=== PATIENT | female | born 1940 | race Two or more races ===

== ENCOUNTER 2019-08-03 23:09 | Inpatient (IN) | payer MEDICARE, MEDICAID ==
[~2019-08-03] VITALS: Ht 152.4 cm; Wt 64.9 kg
[~2019-08-03 23:09] MED LIST: AMLO2.5T4 PO; AZIT500T PO; CITA20TA16 PO; DIVA125C5 PO; DONE10TA44 PO; LEVO50TA8 PO; MEMA28CA5 PO; OLME20TA23 PO; OMEP40CA13 PO; QUET25TA PO; RANI300T4 PO; SIMV10TA98 PO
--- NOTE | 2019-08-03 23:26 | NUR ---
PT JYOTSNA. HAS SYNCOPAL EPISODE. INITIALLY STEPHANIE IN BY SON FOR C/O DYSURIA SINCE 0. PLACED ON MONITOR AND PULSE OX. PLACED ON SIMPLE MASK 11L, FLUIDS INITIATED (LAC 16G), LABS COLLECTED, PT AWAKE AND RESPONSIVE. SON AT BEDSIDE.
--- NOTE | 2019-08-03 23:40 | NUR ---
Labs collected and sent to lab. Awaiting urine sample.
[2019-08-03 23:46] LABS: BASOPHILS # (AUTO) 0.1 /CMM (0.0-0.2); BASOPHILS % (AUTO) 0.9 % (0.0-2.0); EOSINOPHILS % (AUTO) 0.7 % (0.0-6.0); HEMATOCRIT 41 % (33-45); HEMOGLOBIN 13.6 g/dL (11.5-14.8); LYMPHOCYTES # (AUTO) 4.3 /CMM (0.8-4.8); LYMPHOCYTES % (AUTO) 37.1 % (20.0-44.0); MEAN CORPUSCULAR HGB CONC 33 g/dl (31.0-36.0); MEAN CORPUSCULAR VOLUME 91 fL (82-100); MONOCYTES # (AUTO) 1.1 /CMM (0.1-1.30); MONOCYTES % (AUTO) 9.6 % (2.0-12.0); NEUTROPHILS # (AUTO) 5.9 /CMM (1.8-8.9); NEUTROPHILS % (AUTO) 51.7 % (43.0-81.0); PLATELET COUNT (AUTO) 245 /CMM (150-450); RED BLOOD CELL COUNT(AUTO) 4.49 MIL/uL (4.0-5.2); WHITE BLOOD COUNT (AUTO) 11.5 K/uL (4.3-11.0)
[2019-08-03 23:56] LABS: CALCIUM, SERUM 8.8 mg/dL (8.5-10.1); CARBON DIOXIDE 27 mmol/L (21-32); CHLORIDE 105 mmol/L (98-107); GLUCOSE 151 mg/dL (74-106); POTASSIUM 4.2 mmol/L (3.5-5.1); SODIUM SERUM 142 mmol/L (136-145); UREA NITROGEN, BLOOD 13 mg/dL (7-18)
[2019-08-04] MEDS ORDERED: IV NS 0.9% 1,000 ML BAG IV ONE
[2019-08-04 00:02] LABS: ALANINE AMINOTRANSFERASE 20 U/L (12-78); ALBUMIN 3.3 g/dL (3.4-5.0); ALKALINE PHOSPHATASE 80 U/L (46-116); ASPARTATE AMINOTRANSFERASE 24 U/L (15-37); BILIRUBIN,DIRECT 0.1 mg/dL (0.0-0.2); BILIRUBIN,TOTAL 0.4 mg/dL (0.2-1.0); TOTAL PROTEIN, SERUM 7.3 g/dL (6.4-8.2)
--- NOTE | 2019-08-04 00:04 | NUR ---
CALLED SUP FOR TELE BED
--- NOTE | 2019-08-04 00:05 | NUR ---
URINE COLLECTED AND SENT TO LAB
--- NOTE | 2019-08-04 00:05 | NUR ---
BROUGHT TO CT
--- NOTE | 2019-08-04 00:58 | NUR ---
PER SON, UNABLE TO RECALL MEDS. WILL BRING LIST OF MEDS TOMORROW.
[2019-08-04 01:03] LABS: APPEARANCE,URINE Cloudy (CLEAR); BILIRUBIN,URINE LARGE (NEGATIVE); BLOOD, URINE Large Ery/uL (NEGATIVE); COLOR,URINE Red (YELLOW); KETONES,URINE 15 (NEGATIVE); LEUKOCYTE ESTERASE ,URINE Large (NEGATIVE); NITRITE, URINE Positive (NEGATIVE); PH,URINE 6.5 (5.0-8.0); PROTEIN,URINE >=300 mg/dl (NEGATIVE); UGLUCOSE 100 MG/DL mg/dL (NEGATIVE)
--- NOTE | 2019-08-04 01:04 | NUR ---
REPORT GIVEN TO MARIELA FOR GABBY
[2019-08-04] MEDS ORDERED: CEFTRIAXONE 1GM BAG (ER ONLY) 50 ML IV ONE (01:09)
[2019-08-04 01:11] LABS: BACTERIA,URINE Moderate /HPF (None Seen); RBC,URINE TOO NUMEROUS TO COUN /HPF (0-2); SQUAMOUS EPITHELIAL CELL,UR Few /HPF (None Seen)
--- NOTE | 2019-08-04 01:17 | NUR ---
VSS. Transfering pt.
[2019-08-04] MEDS ORDERED: CEFTRIAXONE 1GM BAG (ER ONLY) 1 GM/50 ML PIGGYBACK IV ONE (01:30)
[2019-08-04] MEDS ORDERED: IV NS 0.9% 1,000 ML IV PRN (01:33)
--- NOTE | 2019-08-04 01:37 | NUR ---
DETECTIVE LIEUTENANT NOTES REPORT RECEIVED FROM SHELDON PHAN FROM ER; AWAITING PATIENT ARRIVAL
[2019-08-04 02:00] VITALS: BP 140/54
[2019-08-04] MEDS ORDERED: MAGNESIUM HYDROXIDE 30 ML UDC PO PRN (02:00)
[2019-08-04] MEDS ORDERED: HYDROCODONE/APAP 5/325MG 1 EACH TABLET PO PRN (02:00)
[2019-08-04] MEDS ORDERED: ACETAMINOPHEN 325 MG TABLET PO PRN (02:00)
[2019-08-04] MEDS ORDERED: ONDANSETRON HCL/PF 4 MG/2 ML VIAL IVP PRN (02:00)
[2019-08-04] MEDS ORDERED: Z GUARD REMEDY 2 OZ OINT TP PRN (02:00)
[2019-08-04] MEDS ORDERED: MAG HYDROX/AL HYDROX/SIMETH 30 ML UDC PO PRN (02:00)
[2019-08-04] MEDS ORDERED: ZOLPIDEM TARTRATE 5 MG TABLET PO PRN (02:00)
--- NOTE | 2019-08-04 02:00 | NUR ---
ASSEMBLER FAUCETS ADMITTING NOTES PATIENT ARRIVED VIA GURNEY, ACCOMPANIED BY ER STAFF AND SON; PATIENT AWAKE, A/O X 2-3; PATIENT AMBULATORY WITH ASSISTANCE; SKIN INTACT; TELE MONITOR ATTACHED AND READS NORMAL SINUS RHYTHM HR 65BPM; PATIENT ON 3L NC AND TOLERATING WELL, NO SOB NOTED; NO S/S OF ACUTE RESPIRATORY DISTRESS NOTED; VITALS WNL; PATIENT DENIES PAIN; PATIENT AND SON REQUEST FULL CODE STATUS; SAFETY PRECAUTIONS IMPLEMENTED; BED LOCKED IN LOW POSITION, PATIENT HIGH FOWLERS WITH BILATERAL UPPER SIDE RAILS X2; CALL LIGHT WITHIN EASY REACH; WILL CONTINUE TO MONITOR;
--- NOTE | 2019-08-04 02:02 | NUR ---
PT TRANSFERED PER ACLS PROTOCOL
--- NOTE | 2019-08-04 02:58 | NUR ---
rn notes: received telephone order from hospitalist tonger, for pt to be on cardiac diet. order read back, verified and carried out.
[2019-08-04 04:00] VITALS: BP 124/59
--- NOTE | 2019-08-04 04:53 | NUR ---
MARINE RESOURCE ECONOMIST NOTES LACTIC ACID 2.8; INITIAL RESULTS 2.9; SPOKE WITH MD TOMAS NANCE; NOTIFIED AND AWARE; MD WOULD LIKE TO CONTINUE IVF NS @ 75ML/HR; WILL CONTINUE TO MONITOR
--- NOTE | 2019-08-04 05:23 | NUR ---
GOLF SALES ASSOCIATE NOTES PATIENT AGITATED AND REFUSING TO BE CHANGED; PATIENT WAS EDUCATED ON IMPORTANCE OF CHANGING DIAPERS PRN; PATIENT STILL REFUSED; WILL CONTINUE TO MONITOR
--- NOTE | 2019-08-04 06:32 | NUR ---
[employer]ARD[employer]OD FLOOR INSTALLER CLOSING NOTES PATIENT RESTING COMFORTABLY IN BED; A/O X2-3; NO SOB NOTED; PATIENT ON 3L NC; TOLERATING WELL, BREATHING EVEN AND UNLABORED; L AC #16 INTACT AND PATENT; RUNNING NS @ 75ML/HR; PATIENT TOLERATING IVF WELL; ALL NEEDS RENDERED; SAFETY PRECAUTIONS IMPLEMENTED; BED LOCKED IN LOW POSITION; BILATERAL UPPER SIDE RAILSX2; CALL LIGHT WITHIN REACH; WILL ENDORSE GABBY TO ONCOMING SHIFT Addendum: 08/04/19 at 0635 by KENDY ESPINAL RN TELE MONITOR READING NORMAL SINUS RHYTHM, HR: 65
--- NOTE | 2019-08-04 07:28 | NUR ---
PRINT LINE FEEDER NOTES DURING SHIFT CHANGE, PATIENT STARTED TO GET AGITATED; PATIENT IS AWAKE A/O X1 SINGAPOREAN SPEAKING AND CONFUSED; PATIENT YELLING AT STAFF; LEAVING ROOM AND WALKING AROUND UNIT ACCOMPANIED BY CYCLE SPECIALIST; CHARGE NURSE AWARE AND CALLED SON; WILL ENDORSE TO ONCOMING SHIFT
[2019-08-04 08:00] VITALS: BP 118/56
--- NOTE | 2019-08-04 08:00 | NUR ---
RN NOTES PATIENT RECEIVED IN THE ROOM,GET IRRITABLE, BECAUSE OF DEMENTIA, CONFUSED, INCREASING VOICE, CALLED SON FOR HELP, ALSO NOTIFIED TO BRING HOME MEDICATION. SAFETY PRECAUTION MAINTAINED ALL THE TIME. PATIENT REFUSED US TO BE TAKEN.
[2019-08-04] MEDS ORDERED: ASPI81TA44 PO (08:13)
[2019-08-04] MEDS ORDERED: CAND32TA20 PO (08:13)
[2019-08-04] MEDS ORDERED: DIVA125T2 PO (09:16)
[2019-08-04] MEDS ORDERED: DIVA125T32 PO (09:17)
[2019-08-04] MEDS: AMLODIPINE BESYLATE 2.5 MG TABLET PO SCH (09:30)
[2019-08-04] MEDS ORDERED: DIVALPROEX SODIUM 125 MG CAP.SPRINK PO SCH (09:30)
[2019-08-04] MEDS ORDERED: LOSARTAN POTASSIUM 50 MG TABLET PO SCH (10:00)
[2019-08-04] MEDS: IV NS 0.9% 1,000 ML IV SCH ×2 (11:04→16:43)
[2019-08-04] MEDS: ASPIRIN EC 81 MG TABLET.DR PO SCH (11:07)
[2019-08-04] MEDS: MEMANTINE HCL 5 MG TABLET PO SCH ×2 (11:07→17:37)
[2019-08-04] MEDS: LEVOTHYROXINE SODIUM 50 MCG TABLET PO SCH (11:09)
--- NOTE | 2019-08-04 13:14 | NUR ---
RN NOTES AFTER MEDICATION ADMINISTRATION, PATIENT MORE COOPERATIVE, ABLE TO INFUSE NS 200 ML/HR INTACT ON LEFT AC AREA, TOLERATED LUNCH, AND RESTING IN THE BED. TUTOR COORDINATOR NEX TO THE BED.CONTINUED MONITORING.
[2019-08-04 14:09] LABS: PHOSPHORUS 2.9 mg/dL (2.5-4.9)
[2019-08-04 16:00] VITALS: BP 131/63
[2019-08-04 16:13] LABS: BASOPHILS # (AUTO) 0.1 /CMM (0.0-0.2); BASOPHILS % (AUTO) 0.7 % (0.0-2.0); EOSINOPHILS % (AUTO) 0.5 % (0.0-6.0); HEMATOCRIT 38 % (33-45); HEMOGLOBIN 12.7 g/dL (11.5-14.8); LYMPHOCYTES # (AUTO) 2.3 /CMM (0.8-4.8); LYMPHOCYTES % (AUTO) 27.5 % (20.0-44.0); MEAN CORPUSCULAR HGB CONC 33 g/dl (31.0-36.0); MEAN CORPUSCULAR VOLUME 91 fL (82-100); MONOCYTES # (AUTO) 0.8 /CMM (0.1-1.30); MONOCYTES % (AUTO) 9.2 % (2.0-12.0); NEUTROPHILS # (AUTO) 5.2 /CMM (1.8-8.9); NEUTROPHILS % (AUTO) 62.1 % (43.0-81.0); PLATELET COUNT (AUTO) 225 /CMM (150-450); RED BLOOD CELL COUNT(AUTO) 4.23 MIL/uL (4.0-5.2); WHITE BLOOD COUNT (AUTO) 8.4 K/uL (4.3-11.0)
--- NOTE | 2019-08-04 18:30 | NUR ---
rn notes patient in the bed, pleasantly confused, administered scheduled medication, v/s stable, patient tolerated dinner well, ambulatory, going bathroom, needs attended and anticipated, safety precaution maintained all the time. endorsed oncoming nurse follow plan of care.
--- NOTE | 2019-08-04 19:58 | NUR ---
MS RN OPENING NOTES: RECEIVED PATIENT WALKING AROUND THE NURSING STATION TALKING TO THE J[place] SPEAKINGN RN, STEADY, CONFUSED. NO SOB NOTED. NO COMPLAIN OF PAIN.
[2019-08-04 20:00] VITALS: BP 113/80
--- NOTE | 2019-08-04 20:01 | NUR ---
RECEIVED REPORTS AT 1900.
[2019-08-04 20:34] VITALS: BP 113/80
--- NOTE | 2019-08-04 21:12 | NUR ---
V/S TAKEN BY BULK PLANT AGENT AT 2000,AFEBRILE.RECORDED.
[2019-08-04] MEDS: QUETIAPINE FUMARATE 100 MG TABLET PO SCH (21:17)
[2019-08-04] MEDS: FAMOTIDINE (20 MG) 20 MG TABLET PO SCH (21:17)
[2019-08-05] MEDS: CEFTRIAXONE 1 G in IV D5W 50 ML IV SCH (01:30)
--- NOTE | 2019-08-05 06:21 | NUR ---
MS RN CLOSING NOTES: PATIENT IS ASLEEP AT THIS TIME. NO SOB NOTED. CALL LIGHT WITHIN REACH. BED IN LOWEST AND LOCKED POSITION. EKG DONE TODAY-NORMAL SINUS RHYTHM, AND ATTACHED TO THE CHART BY THE RT.
--- NOTE | 2019-08-05 07:30 | NUR ---
m/s choke setter: initial assessment received pt in bed awake, alert and oriented x 2 with confusion and disorientation to place and situation. reality orientation provided prn. will continue to monitor.
[2019-08-05 08:00] VITALS: BP 130/67
[2019-08-05] MEDS: FAMOTIDINE (20 MG) 20 MG TABLET PO SCH ×2 (08:20→21:47)
[2019-08-05] MEDS: PANTOPRAZOLE 40 MG TABLET.DR PO SCH (08:20)
[2019-08-05] MEDS: ASPIRIN EC 81 MG TABLET.DR PO SCH (08:20)
[2019-08-05] MEDS: DIVALPROEX SODIUM 250 MG TABLET.DR PO SCH (08:20)
[2019-08-05] MEDS: LOSARTAN POTASSIUM 50 MG TABLET PO SCH (08:21)
[2019-08-05] MEDS: AMLODIPINE BESYLATE 2.5 MG TABLET PO SCH (08:21)
[2019-08-05] MEDS: LEVOTHYROXINE SODIUM 50 MCG TABLET PO SCH (08:21)
[2019-08-05] MEDS: MEMANTINE HCL 5 MG TABLET PO SCH ×2 (08:21→17:28)
--- NOTE | 2019-08-05 08:35 | NUR ---
m/s client experience consultant: notes report given to luis manuel (rn) for continuity of care.
[2019-08-05] MEDS ORDERED: CANDESARTAN 16 MG PO SCH (09:00)
[2019-08-05] MEDS: DONEPEZIL 5 MG TABLET PO SCH (10:26)
[2019-08-05 12:32] LABS: BASOPHILS % (AUTO) 0.2 % (0.0-2.0); HEMATOCRIT 36 % (33-45); LYMPHOCYTES % (AUTO) 15.7 % (20.0-44.0); MEAN CORPUSCULAR HGB CONC 34 g/dl (31.0-36.0); MEAN CORPUSCULAR VOLUME 91 fL (82-100); MONOCYTES # (AUTO) 0.8 /CMM (0.1-1.30); MONOCYTES % (AUTO) 13.3 % (2.0-12.0); NEUTROPHILS # (AUTO) 4.3 /CMM (1.8-8.9); NEUTROPHILS % (AUTO) 68.8 % (43.0-81.0); PLATELET COUNT (AUTO) 205 /CMM (150-450); RED BLOOD CELL COUNT(AUTO) 3.93 MIL/uL (4.0-5.2); WHITE BLOOD COUNT (AUTO) 6.3 K/uL (4.3-11.0)
[2019-08-05 13:04] LABS: CALCIUM, SERUM 8.3 mg/dL (8.5-10.1); CREATININE 0.8 mg/dL (0.6-1.3); PHOSPHORUS 2.3 mg/dL (2.5-4.9); POTASSIUM 3.5 mmol/L (3.5-5.1)
[2019-08-05] MEDS: SOD FERRIC GLUC 125 MG in IV NS 0.9% 100 ML IV SCH (13:53)
[2019-08-05 16:00] VITALS: BP 126/71
[2019-08-05] MEDS ORDERED: NEUTRA PHOS 1 POWD.PACKET PO ONE (16:00)
--- NOTE | 2019-08-05 19:30 | NUR ---
RN CLOSING NOTES PATIENT IN STABLE CONDITION. ALL NEEDS ATTENDED AND PROVIDED. ALL DUE MEDS GIVEN ORDERED. ASSISTED WITH ADLS. KEPT SAFE AND COMFORTABLE. BED IN LOW/LOCKED POSITION, SIDERAILS UPX2, CALL LIGHT IN REACH. ENDORSED ACCORDINGLY.
--- NOTE | 2019-08-05 19:35 | NUR ---
RN Notes Patient awake, out of bed walking in the hallway with steady gait. Alert and oriented x1-2, denies any pain and discomfort. No IV access per report from AM RN patient is pulling out lines. Offered to insert a new IV access patient strongly refused. Safety measures in place. Will continue to monitor.
[2019-08-05 20:00] VITALS: BP 131/72
[2019-08-05] MEDS: QUETIAPINE FUMARATE 100 MG TABLET PO SCH (21:47)
[2019-08-05 22:00] VITALS: BP 131/72
[2019-08-06] MEDS: CEFTRIAXONE 1 G in IV D5W 50 ML IV SCH (00:56)
--- NOTE | 2019-08-06 01:35 | NUR ---
RN Notes Patient is due for her Rocephine IVPB. Peripheral IV started on right hand with gauge 24. Patient becomes agitated, restless and combative with the staff. Patient went out of the room, screaming in the nay[address] way and hitting staff. Called Son Ger over the phone to speak with the patient so everything will be explained to the patient in their language(Mosotho) but patient continously get more agitated. Per son patient is not listening to him, do not touch the patient for now. Paged Dr You and notified of patient behavior, Ativan 1 mg IV/IM Q6H PRN for agitation ordered. After Ativan dose patient calm down and able to sleep. IV ATB administered. Kept comfortable and attended in bed. Will continue to monitor.
[2019-08-06] MEDS ORDERED: LORAZEPAM INJ 2 MG/ML VIAL IM/IV PRN (02:00)
[2019-08-06 06:24] LABS: BASOPHILS % (AUTO) 0.3 % (0.0-2.0); HEMATOCRIT 33 % (33-45); HEMOGLOBIN 11.3 g/dL (11.5-14.8); LYMPHOCYTES % (AUTO) 14.3 % (20.0-44.0); MEAN CORPUSCULAR HGB CONC 34 g/dl (31.0-36.0); MEAN CORPUSCULAR VOLUME 91 fL (82-100); MONOCYTES # (AUTO) 0.8 /CMM (0.1-1.30); MONOCYTES % (AUTO) 12.6 % (2.0-12.0); NEUTROPHILS # (AUTO) 4.6 /CMM (1.8-8.9); NEUTROPHILS % (AUTO) 68.8 % (43.0-81.0); PLATELET COUNT (AUTO) 190 /CMM (150-450); RED BLOOD CELL COUNT(AUTO) 3.66 MIL/uL (4.0-5.2); WHITE BLOOD COUNT (AUTO) 6.7 K/uL (4.3-11.0)
--- NOTE | 2019-08-06 06:32 | NUR ---
RN Notes Patient sleeping, calm and cooperative after ativan dose. Vital signs stable, afebrile. Voiding well, denies dysuria. Denies chest pain, sob, nausea and vomiting. Safety measures in place. All needs attended. Will continue to monitor and will endorse accordingly.
[2019-08-06 07:12] LABS: CREATININE 0.8 mg/dL (0.6-1.3); PHOSPHORUS 2.5 mg/dL (2.5-4.9); POTASSIUM 3.3 mmol/L (3.5-5.1)
--- NOTE | 2019-08-06 07:30 | NUR ---
MS RN OPENING NOTES RECEIVED PT IN BED, ASLEEP, EASILY AROUSED, AOX1-2. BELARUSIAN SPEAKING ONLY. PT TOLERATING RA, WITH NO ACUTE RESPIRATORY DISTRESS NOTED. PT DENIES ANY PAIN OR DISCOMFORT AT THIS TIME. PT ALSO DENIES ANY CONCERNS OR QUESTIONS. PIV TO RHAND G22, FLUSHED WITH NS, INTACT AND OPERATIONAL. PT KEPT COMFORTABLE. PT'S BED IN LOWEST, LOCKED POSITION WITH SR X3. WILL CONTINUE PLAN OF CARE.
[2019-08-06 08:00] VITALS: BP 106/50
--- NOTE | 2019-08-06 08:20 | NUR ---
MS RN NOTES SEEN AND EVALUATED BY DR VILLANUEVA, MADE AWARE OF PT'S BEHAVIOR LAST NIGHT. AND PT'S REFUSAL OF MORNING BREAAKFAST AT THIS TIME. PLANNING TO SENT PT HOME SOON THE CULTURES COMES BACK HE SAID. FOR NOW, WILL CONTINUE TO MONITOR PT.
[2019-08-06] MEDS: ASPIRIN EC 81 MG TABLET.DR PO SCH (09:08)
[2019-08-06] MEDS: LEVOTHYROXINE SODIUM 50 MCG TABLET PO SCH (09:08)
[2019-08-06] MEDS: DIVALPROEX SODIUM 250 MG TABLET.DR PO SCH (09:08)
[2019-08-06] MEDS: PANTOPRAZOLE 40 MG TABLET.DR PO SCH (09:09)
[2019-08-06] MEDS: MEMANTINE HCL 5 MG TABLET PO SCH ×2 (09:09→18:06)
[2019-08-06] MEDS: POTASSIUM CHLORIDE 20 MEQ TAB.PRT.SR PO SCH ×3 (09:09→11:34)
[2019-08-06] MEDS: LOSARTAN POTASSIUM 50 MG TABLET PO SCH (09:10)
[2019-08-06] MEDS: AMLODIPINE BESYLATE 2.5 MG TABLET PO SCH (09:10)
[2019-08-06] MEDS: FAMOTIDINE (20 MG) 20 MG TABLET PO SCH (09:10)
[2019-08-06] MEDS: DONEPEZIL 5 MG TABLET PO SCH (09:11)
--- NOTE | 2019-08-06 11:14 | NUR ---
MS RN NOTES INFORMED MD/GA REGARDING FINAL RESULT OF E.COLI AND C/S. WILL NOTIFY SON MIRI.
[2019-08-06] MEDS: SOD FERRIC GLUC 125 MG in IV NS 0.9% 100 ML IV SCH (14:11)
[2019-08-06 16:00] VITALS: BP 125/69
--- NOTE | 2019-08-06 17:39 | NUR ---
MS RN NOTES PT JUST PULLED OUT LEFT HAND PIV. PAGED DR MCGRAW REGARDING ANTIBIOTIC IF IT COULD CHANGE TO PO.
--- NOTE | 2019-08-06 18:46 | NUR ---
MS RN NOTES SPOKE TO /MARILUZ AWARE OF PT'S SITUATION BEING AGITATED. SON/MIRI INVOLVED, INSIST TO REQUEST PT TO BE DISCHARGE TONIGHT. OKAY WITH IT. GENEVA/AMEE MADE AWARE.
[2019-08-06] MEDS ORDERED: NITR100C6 PO (18:58)
--- NOTE | 2019-08-06 19:17 | NUR ---
MS RN CLOSING NOTES PT IN THE CHAIR BY THE DOOR/BY THE HALWAY/IN FRONT OF NURSING STATION, AWAKE, AOX1-2 WITH EPISODES OF AGITATION. TURKISH SPEAKING ONLY. PT TOLERATING RA, WITH NO ACUTE RESPIRATORY DISTRESS NOTED. PT DENIES ANY PAIN OR DISCOMFORT AT THIS TIME. NO IV ACCESS AT THIS TIME. PT PLANNED TO BE DISCHARGE TONIGHT. SON/MIRI AWARE. ALL NEEDS AND CARE PROVIDED TO THE PT. PT KEPT COMFORTABLE. ENDORSED TO INCOMING NIGHT NURSE/VERONIKA/RN.
--- NOTE | 2019-08-06 19:30 | NUR ---
MS RN OPENING NOTE RECEIVED PATIENT AMBULATING AROUND UNIT WITH STEADY GAIT, VERY AGITATED, SCREAMING, ENTERING OTHER PATIENTS ROOM. A/OX1 -2, DOMINICAN SPEAKING. TOLERATING ROOM AIR. RESPIRATIONS ARE EVEN AND UNLABORED. NO S/S SOB NOTED. NO S/S PAIN. IN NO APPARENT DISTRESS. NO IV ACCESS NOTED. SEATED PATIENT ON A CHAIR IN HALLWAY. WILL CONTINUE TO MONITOR.
--- NOTE | 2019-08-06 20:30 | NUR ---
DISCHARGE NOTE PATIENT IS BEING DISCHARGED, TAKEN HOME BY SON. BELONGINGS LIST SIGNED, MEDICATIONS GIVEN, HOME MEDICATION RETURN SLIP SIGNED, EXIT CARE EXPLAINED, MEDICATION TO PHARMACY EXPLAINED. PATIENT REFUSED VITAL SIGNS. WHEELED DOWN IN A WHEELCHAIR BY CLAY.
== END 2019-08-06 20:30 | disposition home health service (06) | DRG 690 ==
LOC: ER 23:20 → TELE 08-04 00:31 → MED 08-04 10:21
PROVIDERS: ADMIT Student in an Organized Health Care Education/Training Program; ATTEND Family Medicine
DX: N39.0 Urinary tract infection, site not specified (principal); E87.2 Acidosis; F03.90 Unspecified dementia, unspecified severity, without behavioral disturbance, psychotic disturbance, mood disturbance, and anxiety; I10 Essential (primary) hypertension; E86.0 Dehydration; E03.9 Hypothyroidism, unspecified; E66.9 Obesity, unspecified; E87.6 Hypokalemia; R55 Syncope and collapse; I51.7 Cardiomegaly; Z68.27 Body mass index [BMI] 27.0-27.9, adult; D50.9 Iron deficiency anemia, unspecified; B96.20 Unspecified Escherichia coli [E. coli] as the cause of diseases classified elsewhere
CPT/HCPCS: 36415; 70450-TC; 71045-TC; 80048-TC; 80061-TC; 80076-TC; 81000-TC; 82728-TC; 83540-TC; 83605-TC; 83735-TC; 84100-TC; 84439-TC; 84484-TC; 84703-TC; 85025-TC; 85730-TC; 86850-TC; 87040-TC; 87081-TC; 87086-TC; 87186-TC; 93307-TC; 97116-TC; 97530-TC; G0378; J0696; J2060; J2916; J7030; J7060